=== PATIENT | female | born 1985 | race Asian ===

== ENCOUNTER 2023-05-19 19:27 | Emergency (ER) | payer OTHER, SELFPAY ==
[2023-05-19 19:36] VITALS: BP 136/93
[2023-05-19 20:52] VITALS: BMI 25.0
[2023-05-19 20:59] LABS: % Basophils 0.4 % (0-2); % Eosinophils 0.6 % (0-6); % Immature Granulocytes 0.1 % (0-0.5); % Lymphocytes 35.9 % (20.5-51.1); % Monocytes 5.8 % (1.7-9.3); % Neutrophils 57.2 % (42.2-75.2); Absolute Lymphocytes 2.5 10^3/uL (1.2-3.4); Absolute Monocytes 0.4 10^3/uL (0.1-0.6); Absolute Neutrophils 3.9 10^3/uL (1.4-6.5); Hematocrit 39.1 % (37.0-47.0); Hemoglobin 13.7 g/dL (12.0-16.0); Mean Corpuscular Hgb 29.5 pg (27.0-31.0); Mean Corpuscular Volume 84.1 fL (81.0-99.0); Mean Platelet Volume 10.3 fL (7.4-10.4); Nucleated Red Blood Cells % 0 %; Platelet Count 272 10^3/uL (130-400); Red Blood Cell Count 4.65 10^6/uL (4.20-5.40); Red Cell Dist. Width 13.3 % (11.5-14.5); White Blood Cell Count 6.9 10^3/uL (4.8-10.8)
--- NOTE | 2023-05-19 21:01 | ED.GENMED ---
History of Present Illness
General
Chief Complaint: Headache
Source: patient and spouse
Time Seen by Provider: 05/19/23 20:31
Travel History
Have you had any contact with someone who has COVID-19?: No
Do you have any symptoms of coronavirus? Fever > 100 degrees, chills, cough, shortness of breath, sore throat, loss of taste or smell, muscle aches, or headache?: No
History of Present Illness
History of Present Illness:
37-year-old female with daily headaches mostly posterior with numbness to her head. She had a concussion in January. She has been having headaches since February. She had trigger point injections in March of the headaches have actually been
worse since then. Numbness and headaches have been on a daily basis. states she is in bed frequently. However today the headaches were worse and numbness is worse. She did not take medications today for her symptoms. She has had
previous CTs and MRIs.
Past History
Past History
ED Past Medical History: Other (Postconcussion syndrome chronic headaches)
ED Past Surgical History: None and
Social History
Tobacco: Non-smoker
Alcohol: None
Drug: None
Personal:
Living: with family
Review of Systems
Review of Systems
All Other Systems: Not applicable
Constitutional: Denies fever
Neurological: Denies dizzy or weakness
Phy Exam
Physical Exam
Physical Exam:
GENERAL: Alert. Nontoxic but appears uncomfortable. Patient is holding her posterior occipital scalp. Very point tender to any light touch to the scalp. There is 1 small erythematous vesicle but no pustule or other vesicles noted. No erythema
EYE: Orbits normal.
NECK: Supple, nontender
ENT: Pharynx without erythema
CARDIAC: Regular rate and rhythm without any obvious murmurs.
LUNGS: Clear breath sounds,normal
ABDOMEN: Soft, without focal tenderness or distention
NEUROLOGICAL: Alert and oriented , grossly non-focal. Extraocular muscles intact.
SKIN: Warm and dry, no rash or lesion, no discoloration, skin intact.
MUSCULOSKELETAL: No edema,no deformity.Good color
PSYCH: Normal and appropriate interaction.
Course
Orders/Labs/Results
Orders:
Orders
05/19/23 20:47
CT Head W/o Iv Contrast Urgent
Comment:
Reason For Exam: Ongoing posterior headache
IV Insert/Care/Rem.- Treatment PRN
0.9% Sodium Chloride 1000 ml [Nss] 1,000 ml IV BOLUS
05/19/23 20:48
Electrocardiogram (*1) Stat
Reason for Study: Other
Other Reason for Exam: Headache
EKG- Treatment ONCE
05/19/23 20:54
Basic Metabolic Panel Urgent
Complete Blood Count/With Diff Urgent
HCG, Serum Qualitative Screen Urgent
Comment: ADD ON
05/19/23 21:00
Acetaminophen 1000MG/100Ml [Ofirmev] 1,000 mg in 100 ml IV ONCE
Acetaminophen IV Indication:: ED Narcotic Naive Pt-ONCE
Diphenhydramine [Benadryl] 25 mg IV NOW STA
Ketorolac [Toradol] 15 mg IV NOW STA
Prochlorperazine [Compazine] 5 mg IV NOW STA
05/19/23 21:02
Add On- LAB Urgent
Tests Added?: qual bhcg
Abnormal Lab Results
05/19/23
20:54
Creatinine 0.5 L mg/dL
(0.6-1.0)
Glucose 109 H mg/dl
(70-99)
05/19/23 20:54
05/19/23 20:54
Vital Signs
Initial and Last Documented VS:
Initial Vital Signs
Pulse Resp BP Pulse Ox
125 20 136/93 96
05/19/23 19:36 05/19/23 19:36 05/19/23 19:36 05/19/23 19:36
Last Documented Vital Signs
Temp Pulse Resp BP Pulse Ox
98.1 F 62 17 96/62 100
05/19/23 19:51 05/19/23 22:00 05/19/23 22:00 05/19/23 22:00 05/19/23 22:00
MDM/Problems Addressed
Differential Diagnosis Includes:
Patient with daily ongoing occipital headaches and cephalgia with paresthesias since the mid to late fall. Full workup in the past. She gets this daily. It sounds like these have made her somewhat bedridden at times. However symptoms were worse
today. Is clinically sounds like an exacerbation of her ongoing symptoms. She has no acute neurologic findings. She has no fever. Her neck is supple. We will get a CT for completeness. Pain management.
*Radiology
Radiology exam reviewed: radiology read reviewed (Negative CT)
*Pulse Oximetry
Patient hypoxic: no
*EKG
Interpreted by ED Provider?: Yes
Interpretation: normal
Comparison EKG: no changes
Heart Rate: 75
Rate: normal
[place]: normal axis
Interval: normal interval
QRS Pattern: normal QRS
Ischemia: no ischemia
*Installation And Repair Technician Interpretation
Rate: normal
Interpretation: normal
Heart Rate: 77
Rhythm: sinus
*Critical Care Note
Total Time (30-74mins, 75-104mins- exclusive of procedures): Not Applicable
Update Note
Update Note:
Patient rechecked. Appears much more comfortable but still holding the back of her head. I had a lengthy discussion with patient's . This has been an ongoing daily issue for months. He states she wakes up with headaches and nerve pain
every day all day spends most of the day in bed. She is followed by neurology. Unfortunately we will not solve this problem tonight. I find no acute new issues that warrant admission or further care. I do not think we will be able to totally get
rid of her ongoing headache as this has been continual for months. However I feel we have abated the headache to a reasonable degree. This was discussed with the . He is aware to follow-up closely. Would consider gabapentin
ED Attending Note
-
Portions of this chart may have been created with voice recognition software.� Occasional wrong word or��sound alike� substitutions may have occurred due to the inherent limitations of voice recognition software.
Discharge Plan
Departure
Patient Disposition: Home (Routine Discharge)
Date of Disposition: 05/19/23
Time of Disposition: 23:03
Patient with high blood pressure during this ER visit?: No
Discharge Problem:
Ongoing headache/cephalgia, History of concussion
Instructions: Headache, Adult (DC)
Prescriptions:
No Action
prednisone 20 MG tablet
40 mg PO DAILY Qty: 10 0RF
albuterol sulfate 1 PUFF HFA aerosol inhaler
1 puff inhalation R Q4HPRN PRN (Reason: cough, wheeze) Qty: 1 0RF
albuterol sulfate [ProAir HFA] 90 mcg/actuation Hfa Aerosol Inhaler
2 puff INHALATION Q4HPRN PRN (Reason: shortness of breath) Qty: 6.7 0RF
doxycycline hyclate 100 mg tablet
100 mg PO BID Qty: 14 0RF
Referrals:
Oliverio Antunez DO [Family Provider] -
Activity Restrictions/Additional Instructions:
Call her neurologist first thing tomorrow morning. Ask her to consider trying gabapentin for this cephalgia like pain
Also call her primary physician tomorrow for close follow-up
Interventions
Interventions:
*Risk Screen - Suicide Last Done: 05/19/23 19:36
*General Assessment Last Done: 05/19/23 19:36
*Neglect/Abuse Screening Last Done: 05/19/23 19:36
ED- Fall Risk Assessment Last Done: 05/19/23 20:50
ED- Neurological Assessment Last Done: 05/19/23 20:50
[2023-05-19] MEDS: NSS 1000 IV (21:09)
[2023-05-19 21:13] LABS: Blood Urea Nitrogen 9 mg/dl (7-17); Calcium 10.2 mg/dl (8.4-10.2); Carbon Dioxide 22 mmol/L (22-30); Chloride 106 mmol/L (98-107); Estimated Creatinine Clearance 100 ml/min; Glucose 109 mg/dl (70-99); Sodium 137 mmol/L (135-145); eGFR > 60.00
[2023-05-19] MEDS: TORADOL 15 MG IV (21:13)
[2023-05-19] MEDS: BENADRYL 25 MG IV (21:13)
[2023-05-19] MEDS: OFIRMEV 100 IV (21:13)
[2023-05-19] MEDS: COMPAZINE 5 MG IV (21:14)
[2023-05-19 21:21] LABS: HCG, Serum Qualitative Screen Negative
[2023-05-19 21:28] LABS: Potassium 4.3 mmol/L (3.5-5.1)
[2023-05-19 21:38] VITALS: BP 115/82
[2023-05-19 22:00] VITALS: BP 96/62
[2023-05-19 22:21] VITALS: BP 114/77
--- NOTE | 2023-05-19 23:35 | ED.GENMED ---
History of Present Illness
General
Chief Complaint: Headache
Time Seen by Provider: 05/19/23 20:31
Travel History
Have you had any contact with someone who has COVID-19?: No
Do you have any symptoms of coronavirus? Fever > 100 degrees, chills, cough, shortness of breath, sore throat, loss of taste or smell, muscle aches, or headache?: No
Past History
Past History
ED Past Medical History: Other (Postconcussion syndrome chronic headaches)
ED Past Surgical History: None and
Social History
Tobacco: Non-smoker
Alcohol: None
Drug: None
Personal:
Living: with family
Course
Orders/Labs/Results
Orders:
Orders
05/19/23 20:47
CT Head W/o Iv Contrast Urgent
Comment:
Reason For Exam: Ongoing posterior headache
IV Insert/Care/Rem.- Treatment PRN
0.9% Sodium Chloride 1000 ml [Nss] 1,000 ml IV BOLUS
05/19/23 20:48
Electrocardiogram (*1) Stat
Reason for Study: Other
Other Reason for Exam: Headache
EKG- Treatment ONCE
05/19/23 20:54
Basic Metabolic Panel Urgent
Complete Blood Count/With Diff Urgent
HCG, Serum Qualitative Screen Urgent
Comment: ADD ON
05/19/23 21:00
Acetaminophen 1000MG/100Ml [Ofirmev] 1,000 mg in 100 ml IV ONCE
Acetaminophen IV Indication:: ED Narcotic Naive Pt-ONCE
Diphenhydramine [Benadryl] 25 mg IV NOW STA
Ketorolac [Toradol] 15 mg IV NOW STA
Prochlorperazine [Compazine] 5 mg IV NOW STA
05/19/23 21:02
Add On- LAB Urgent
Tests Added?: qual bhcg
Abnormal Lab Results
05/19/23
20:54
Creatinine 0.5 L mg/dL
(0.6-1.0)
Glucose 109 H mg/dl
(70-99)
05/19/23 20:54
05/19/23 20:54
Vital Signs
Initial and Last Documented VS:
Initial Vital Signs
Pulse Resp BP Pulse Ox
125 20 136/93 96
05/19/23 19:36 05/19/23 19:36 05/19/23 19:36 05/19/23 19:36
Last Documented Vital Signs
Temp Pulse Resp BP Pulse Ox
98.1 F 63 18 92/65 99
05/19/23 19:51 05/19/23 23:46 05/19/23 23:46 05/19/23 23:46 05/19/23 23:46
ED Attending Note
-
Portions of this chart may have been created with voice recognition software.� Occasional wrong word or��sound alike� substitutions may have occurred due to the inherent limitations of voice recognition software.
Discharge Plan
Departure
Patient Disposition: Home (Routine Discharge)
Date of Disposition: 05/19/23
Time of Disposition: 23:03
Patient with high blood pressure during this ER visit?: No
Discharge Problem:
Ongoing headache/cephalgia, History of concussion
Instructions: Headache, Adult (DC)
Prescriptions:
No Action
prednisone 20 MG tablet
40 mg PO DAILY Qty: 10 0RF
albuterol sulfate 1 PUFF HFA aerosol inhaler
1 puff inhalation R Q4HPRN PRN (Reason: cough, wheeze) Qty: 1 0RF
albuterol sulfate [ProAir HFA] 90 mcg/actuation Hfa Aerosol Inhaler
2 puff INHALATION Q4HPRN PRN (Reason: shortness of breath) Qty: 6.7 0RF
doxycycline hyclate 100 mg tablet
100 mg PO BID Qty: 14 0RF
Referrals:
Oliverio Antunez, [Family Provider] -
Activity Restrictions/Additional Instructions:
Call her neurologist first thing tomorrow morning. Ask her to consider trying gabapentin for this cephalgia like pain
Also call her primary physician tomorrow for close follow-up
Interventions
Interventions:
*Risk Screen - Suicide Last Done: 05/19/23 19:36
*General Assessment Last Done: 05/19/23 19:36
*Neglect/Abuse Screening Last Done: 05/19/23 19:36
ED- Fall Risk Assessment Last Done: 05/19/23 20:50
*ED COVID-19 Vaccine History Last Done: 05/20/23 00:14
*Nursing Disposition Last Done: 05/20/23 00:14
ED- Neurological Assessment Last Done: 05/19/23 20:50
Discharge Date and Time
Discharge Date/Time: 05/20/23 00:15
[2023-05-19 23:46] VITALS: BP 92/65
== END 2023-05-20 00:15 | disposition home or self-care (01) ==
LOC: EMR 19:27
PROVIDERS: EMERGENCY PHYSICIAN Emergency Medicine; FAMILY PHYSICIAN Family Medicine
DX: R51.9 Headache, unspecified (principal); R20.2 Paresthesia of skin; Z87.820 Personal history of traumatic brain injury
CPT/HCPCS: 99285; 96374; 96375 ×3; 96361; 70450; 80048; 84703; 85025; 93005